=== PATIENT | female | born 2005 | race Caucasian/White ===

== ENCOUNTER 2024-07-17 12:25 | Emergency (ER) | payer MEDICAID ==
[~2024-07-17] VITALS: Ht 172.7 cm; Wt 72.7 kg
[2024-07-17 12:49] VITALS: TEMP 98.1
[2024-07-17 15:55] VITALS: BP 97/62; PULSE 82; O2SAT 98
[2024-07-17 16:16] VITALS: RESP 15
[2024-07-17] MEDS: ketorolac trometh 15mg/ml vial 15 MG/ML ML IM ONE (16:16)
[2024-07-17] MEDS ORDERED: PROP40TA72 PO (16:50)
[2024-07-17] MEDS ORDERED: PRED20TA PO (16:50)
[2024-07-20] MEDS ORDERED: FIOCOC PO (00:05)
== END 2024-07-17 17:17 | disposition home or self-care (01) ==
LOC: ER 12:26
DX: R51.9 Headache, unspecified (principal); Z88.2 Allergy status to sulfonamides
CPT/HCPCS: 70450; 96372; 99285; J1885; A4615

== ENCOUNTER 2024-08-30 03:45 | Emergency (ER) | payer MEDICAID ==
[~2024-08-30] VITALS: Ht 172.7 cm; Wt 72.7 kg
[~2024-08-30 03:45] MED LIST: FIOCOC PO
[2024-08-30] MEDS ORDERED: PROC-8 PO (05:02)
[2024-08-30] MEDS: acetaminophen 325mg tablet PO ONE (05:09)
[2024-08-30] MEDS: proCHLORperazine 10mg tablet PO ONE (05:10)
[2024-08-30 05:12] VITALS: BP 122/74; PULSE 78; RESP 14; TEMP 98.3; O2SAT 99
== END 2024-08-30 05:14 | disposition home or self-care (01) ==
LOC: ER 03:46
DX: R51.9 Headache, unspecified (principal); Z88.2 Allergy status to sulfonamides
CPT/HCPCS: 99283; Q0164